=== PATIENT | male | born 1940 | race Caucasian/White ===

== ENCOUNTER 2020-12-13 16:29 | Emergency (ER) | payer MEDICARE ==
[~2020-12-13] VITALS: Ht 170.2 cm; Wt 70.3 kg
[~2020-12-13 16:29] MED LIST: ASPIRIN EC81 MG PO; AVODART0.5 MG PO; B COMPLEX1 EACH PO; IBUPROFEN800 MG PO; OMEGA-31000 MG PO; OMEPRAZOLE20 MG PO; PRESERVISION A1 EAC3 PO; SIMVASTATIN20 MG PO; VITAMIN D400 UNIT PO
[2020-12-13] MEDS ORDERED: FLOMAX0.4 MG PO (18:02)
== END 2020-12-13 18:40 | disposition home or self-care (01) ==
LOC: ED 16:29
DX: R33.9 Retention of urine, unspecified (principal); Z87.891 Personal history of nicotine dependence; Z79.899 Other long term (current) drug therapy; Z79.82 Long term (current) use of aspirin
CPT/HCPCS: 51702; 81001; 99283-25

== ENCOUNTER 2021-04-16 12:01 | Emergency (ER) | payer MEDICARE ==
[~2021-04-16] VITALS: Ht 170.2 cm; Wt 70.3 kg
[~2021-04-16 12:01] MED LIST changes: +FLOMAX0.4 MG PO
[2021-04-16] MEDS ORDERED: FLOMAX0.4 MG PO (13:49)
== END 2021-04-16 14:40 | disposition home or self-care (01) ==
LOC: ED 12:01
PROC: 0T2BX0Z Change Drainage Device in Bladder, External Approach (ICD-10-PCS; principal; 2021-04-16)
DX: R33.9 Retention of urine, unspecified (principal); Z87.891 Personal history of nicotine dependence
CPT/HCPCS: 51702; 81001; 99283-25

== ENCOUNTER 2021-09-28 23:37 | Emergency (ER) | payer MEDICARE ==
[~2021-09-28] VITALS: Ht 167.6 cm; Wt 68.0 kg
== END 2021-09-29 01:08 | disposition home or self-care (01) ==
LOC: ED 23:37
DX: N40.1 Benign prostatic hyperplasia with lower urinary tract symptoms (principal); R33.8 Other retention of urine; Z87.891 Personal history of nicotine dependence; Z79.899 Other long term (current) drug therapy
CPT/HCPCS: 51702; 81001; 99283-25

== ENCOUNTER 2021-10-12 12:36 | Emergency (ER) | payer MEDICARE ==
[~2021-10-12] VITALS: Ht 167.6 cm; Wt 68.0 kg
--- OUTSIDE RECORDS SUMMARY | 2021-10-12 12:44 | XMS ---
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 [place] has no Care Guidelines for this patient. Ernesto [facility] (12 MO.) [facility] T[facility] NOTE: Visits indicate total known visits. ED/C VISIT TRACKING (12 MO.) 10/12/2021 12:[address] [facility] [place] TYPE: Emergency COMPLAINT: - CATHETER PLACEMENT 09/28/2021 23:38 [facility] TYPE: Emergency COMPLAINT: - URINE PROBLEM DIAGNOSES: - Dysuria - Other assisted (current) drug therapy - Other retention of urine - Personal history of nicotine dependence - Benign prostatic hyperplasia with lower urinary tract symptoms 04/16/2021 12:02 [facility] [place] TYPE: Emergency COMPLAINT: - UNABLE TO URINATE DIAGNOSES: - Retention of urine, unspecified - Other assisted (current) drug therapy - retirement (current) use of aspirin - Personal history of nicotine dependence 12/13/2020 16:29 [facility] [place] TYPE: Emergency COMPLAINT: - UNABLE TO URINATE IN PAIN DIAGNOSES: - Personal history of nicotine dependence - exterminator helper termite (current) use of aspirin - Other exterminator helper termite (current) drug therapy - Retention of urine, unspecified INPATIENT VISIT TRACKING (12 MO.) No inpatient visits to display in this time frame [email or web address]
[2021-10-12] MEDS ORDERED: SIMVASTATIN20 MG (13:13)
[2021-10-12] MEDS ORDERED: FINASTERIDE5 MG (13:13)
== END 2021-10-12 14:09 | disposition home or self-care (01) ==
LOC: ED 12:36
DX: N40.1 Benign prostatic hyperplasia with lower urinary tract symptoms (principal); R33.8 Other retention of urine; Z87.891 Personal history of nicotine dependence; Z79.899 Other long term (current) drug therapy
CPT/HCPCS: 51702; 81001; 99283-25

== ENCOUNTER 2021-10-23 04:35 | Emergency (ER) | payer MEDICARE ==
[~2021-10-23] VITALS: Ht 167.6 cm; Wt 72.6 kg
[~2021-10-23 04:35] MED LIST changes: +FINASTERIDE5 MG; +SIMVASTATIN20 MG
--- OUTSIDE RECORDS SUMMARY | 2021-10-23 04:42 | XMS ---
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 [facility] has no Care Guidelines for this patient. Ernesto VISIT COUNT (12 MO.) 5 [facility] [place] [facility] TOTAL 5 NOTE: Visits indicate total known visits. ED/C VISIT TRACKING (12 MO.) 10/23/2021 04:[address] [facility] [place] TYPE: Emergency COMPLAINT: - URINE ISSUE 10/12/2021 12:37 [facility] [place] TYPE: Emergency COMPLAINT: - CATHETER PLACEMENT DIAGNOSES: - Other retention of urine - Benign prostatic hyperplasia with lower urinary tract symptoms - Retention of urine, unspecified - Other longterm (current) drug therapy - Personal history of nicotine dependence 09/28/2021 23:38 [facility] [place] TYPE: Emergency COMPLAINT: - URINE PROBLEM DIAGNOSES: - Dysuria - Other longterm (current) drug therapy - Other retention of urine - Personal history of nicotine dependence - Benign prostatic hyperplasia with lower urinary tract symptoms 04/16/2021 12:[address] [facility] [place] TYPE: Emergency COMPLAINT: - UNABLE TO URINATE DIAGNOSES: - Retention of urine, unspecified - Other extermination inspector (current) drug therapy - correction (current) use of aspirin - Personal history of nicotine dependence 12/13/2020 16:[address] [facility] [place] TYPE: Emergency COMPLAINT: - UNABLE TO URINATE IN PAIN DIAGNOSES: - Personal history of nicotine dependence - correction (current) use of aspirin - Other extermination inspector (current) drug therapy - Retention of urine, unspecified INPATIENT VISIT TRACKING (12 MO.) No inpatient visits to display in this time frame [email or web address]
== END 2021-10-23 06:11 | disposition home or self-care (01) ==
LOC: ED 04:35
DX: N40.1 Benign prostatic hyperplasia with lower urinary tract symptoms (principal); R33.8 Other retention of urine; Z87.891 Personal history of nicotine dependence; Z79.899 Other long term (current) drug therapy
CPT/HCPCS: 51702; 81001; 99283

== ENCOUNTER 2023-06-15 18:29 | Emergency (ER) | payer MEDICARE ==
[~2023-06-15] VITALS: Ht 167.6 cm; Wt 72.6 kg
[2023-06-15] MEDS ORDERED: LUTEIN10 MG PO (18:44)
[2023-06-15 19:46] LABS: BILIRUBIN, URINE NEGATIVE (negative); BLOOD/HGB, URINE MODERATE (Negative); KETONE, URINE NEGATIVE (Negative); LEUK ESTERASE, URINE LARGE (negative); NITRITE, URINE NEGATIVE (negative); PH, URINE 6.5 (5-7)
[2023-06-15 19:52] LABS: BACTERIA, URINE 1+ /hpf (negative); CASTS, URINE NONE SEEN \\lpf; COLLECTION TYPE, URINE CLEAN CATCH; CRYSTALS, URINE NONE SEEN (0-1+); WHITE BLOOD CELLS, URINE >50 /HPF (0-5)
[2023-06-15 19:53] LABS: EPITHELIAL CELLS, URINE SQUAMOUS 1+ /lpf (0-1+); REFLEX CULTURE, URINE Yes (No)
[2023-06-15] MEDS ORDERED: BACTRIM DS TAB1 EACH PO (20:52)
[2023-06-15 21:05] VITALS: BP 139/72
== END 2023-06-15 21:05 | disposition home or self-care (01) ==
LOC: ED 18:29
PROVIDERS: Internal Medicine
DX: N39.0 Urinary tract infection, site not specified (principal); Z87.891 Personal history of nicotine dependence; Z79.899 Other long term (current) drug therapy
CPT/HCPCS: 81001; 99283; A9270

== ENCOUNTER 2025-07-06 21:31 | Emergency (ER) | payer MEDICARE ==
[~2025-07-06] VITALS: Ht 167.6 cm; Wt 96.8 kg
--- NOTE | ~2025-07-06 | EKG ---
[facility] [address] [facility] [place], [place] [address] Draft EKG completed, results pending confirmation PATIENT NAME: VALENTIN COLLINSLESLIE MORGAN Electrocardiogram DATE OF : 36 PHYSICIAN: PRELIMINARY REPORT #: [id number] REPORT IS CONFIDENTIAL AND NOT TO BE RELEASED WITHOUT AUTHORIZATION
[~2025-07-06 21:31] MED LIST changes: +BACTRIM DS TAB1 EACH PO; +LUTEIN10 MG PO; +PAXLOVID 300-11 EAC1 PO; +VENTOLIN HFA18 GM INH
[2025-07-06 21:54] LABS: BASOPHILS 0.2 % (0.2-1.2); EOSINOPHILS 1.2 % (0.8-7.0); LYMPHOCYTES 17.3 % (21.8-53.1); MCH 31.8 PG (25.7-32.2); MCHC 32.4 g/dL (32.3-36.5); MCV 98.2 fL (79.0-92.2); MONOCYTES 9.9 % (5.3-12.2); NEUTROPHILS 70.9 % (34.0-67.9); RBC 3.99 M/uL (4.63-6.08)
[2025-07-06 21:59] LABS: INR 1.07 (0.80-1.30); PROTIME 13.1 Sec (11.2-14.2)
[2025-07-06 22:05] LABS: ALT (SGPT) 22.0 U/L (14-59); AST (SGOT) 19.0 U/L (15-37); GLOMERULAR FILTRATION RATE,EST 74.0 mL/min (>60); PROTEIN, TOTAL 6.9 g/dL (6.4-8.2); UREA NITROGEN 18.0 mg/dL (7-18)
[2025-07-06] MEDS ORDERED: LACTATED RINGER'S 1,000 ML IV ONE (22:45)
[2025-07-06 23:01] LABS: TSH, 3RD GENERATION 6.061 uIU/mL (0.358-3.740)
[2025-07-06 23:28] LABS: CORONAVIRUS COVID-19 AG NEGATIVE (NEGATIVE)
[2025-07-07 00:10] LABS: BLOOD/HGB, URINE NEGATIVE (Negative); KETONE, URINE SMALL (Negative); LEUK ESTERASE, URINE TRACE (negative); NITRITE, URINE NEGATIVE (negative)
[2025-07-07 00:20] LABS: BACTERIA, URINE 2+ /hpf (negative); CASTS, URINE HYALINE 1+ \\lpf; CRYSTALS, URINE NONE SEEN (0-1+); EPITHELIAL CELLS, URINE SQUAMOUS 2+ /lpf (0-1+); REFLEX CULTURE, URINE No (No)
[2025-07-07 01:47] LABS: LACTIC ACID, BLOOD 1.0 mmol/L (0.4-2.0)
[2025-07-07] MEDS ORDERED: GUAIFENESIN/DEXTROMETHORPHAN 5 ML SYRUP PO ONE (02:00)
[2025-07-07] MEDS ORDERED: CEPHALEXIN500 M1 PO (02:09)
[2025-07-07 02:20] VITALS: BP 138/80
== END 2025-07-07 02:20 | disposition home or self-care (01) ==
LOC: ED 21:31
PROVIDERS: Internal Medicine
DX: N39.0 Urinary tract infection, site not specified (principal); E86.0 Dehydration; Z87.891 Personal history of nicotine dependence
CPT/HCPCS: 36415; 71045; 80053; 81001; 83605; 83735; 83880; 84439; 84443; 84484; 85025; 85060; 85610; 87088; 93005; 93010; 96374; 99285-25; A9270; J0696; J7121